=== PATIENT | female | born 1990 | race Native Hawaiian/Other Pacific Islander ===

== ENCOUNTER 2017-06-27 14:04 | Emergency (ER) | payer SELFPAY ==
[~2017-06-27] VITALS: Ht 152.4 cm; Wt 50.0 kg
[2017-06-27 14:06] VITALS: BP 134/90; PULSE 74; RESP 16; TEMP 97.4; O2SAT 98
[2017-06-27] MEDS ORDERED: DOXY100C PO (16:48)
[2017-06-27] MEDS ORDERED: ERYTOIN10 LEFT EYE (16:48)
--- NOTE | 2017-06-27 16:48 | PD ---
HPI Chief Complaint: Eye Problems/Injury Time Seen by Provider: 15:54 Travel History International Travel<30 days: No Contact w/Intl Traveler<30days: No Traveled to known affect area: No History of Present Illness HPI 26-year-old female complains of pain and swelling left upper eyelid. Patient states that symptoms started this morning. Patient states that the pain is mild aching pain localized to left upper eyelid. Patient denies any pain radiation. Patient noticed some swelling on the left upper eyelid since this morning also. Patient denies any visual change. Patient denies any eye discharge. Patient denies any fever chills. PFSH Past Medical History ?: Not LMP: 06/25/17 Past Surgical History Other Surgery: Yes (nose surgery) Social History Alcohol Use: No Tobacco Use: No Substance Use: No Allergies-Medications (Allergen,Severity, Reaction): Coded Allergies: No Known Allergies (Unverified , 06/27/17) Review of Systems General / Constitutional: No: Fever Eyes: No: Visual changes HENT: No: Headaches Cardiovascular: No: Chest Pain or Discomfort Respiratory: No: Shortness of Breath Gastrointestinal: No: Abdominal Pain Genitourinary: No: Dysuria Musculoskeletal: No: Pain Skin: No Rash Neurologic: No: Weakness Psychiatric: No: Depression Endocrine: No: Polydipsia Hematologic/Lymphatic: No: Easy Bruising Physical Exam Narrative GENERAL: Well-nourished, well-developed patient. SKIN: Focused skin assessment warm/dry. HEAD: Normocephalic. EYES: No scleral icterus. No injection or drainage. Patient has mild edema and mild reddish discoloration to the left upper eyelid. Mild tenderness on palpation. NECK: Supple, trachea midline. No JVD or lymphadenopathy. CARDIOVASCULAR: Regular rate and rhythm without murmurs, gallops, or rubs. RESPIRATORY: Breath sounds equal bilaterally. No accessory muscle use. GASTROINTESTINAL: Abdomen soft, non-tender, nondistended. MUSCULOSKELETAL: No cyanosis, or edema. BACK: Nontender without obvious deformity. No CVA tenderness. Data Data Last Documented VS Vital Signs Date Time Temp Pulse Resp B/P (MAP) Pulse Ox O2 Delivery O2 Flow Rate FiO2 06/27/17 14:06 97.4 74 16 134/90 (105) 98 MDM Medical Decision Making Medical Screen Exam Complete: Yes Emergency Medical Condition: Yes Differential Diagnosis Differential diagnosis including cellulitis, stye, blepharitis Narrative Course 26-year-old female with redness swelling tenderness of the left upper eyelid. Diagnosis Primary Impression: Cellulitis of left upper eyelid Patient Instructions: General Instructions Additional Instructions: Take medications as directed. Moist warm compress to left eye. Follow-up with physicist [facility]oust[facility] if persistent problem. Return if worse. Med/Other Pt SpecificInfo: Prescription(s) given Scripts Doxycycline Hyclate (Doxycycline Hyclate) 100 Mg Cap 100 MG PO BID for Infection, #20 CAP 0 Refills Prov: Joshua Shaikh MD 06/27/17 Erythromycin Opth Oint (Erythromycin Opth Oint) 5 Mg/Gm Oint 1 APPLIC LEFT EYE BID for Infection, #1 TUBE 0 Refills Prov: Joshua Shaikh MD 06/27/17 Disposition: 01 DISCHARGE HOME Condition: Stable Joshua hSaikh MD Jun 27, 2017 16:48
== END 2017-06-27 17:10 | disposition home or self-care (01) ==
LOC: NEPD 14:04
DX: H00.034 Abscess of left upper eyelid (principal)
CPT/HCPCS: 99284